=== PATIENT | male | born 1980 | race Native Hawaiian/Other Pacific Islander ===

== ENCOUNTER 2017-03-12 12:58 | Emergency (ER) | payer SELFPAY ==
--- NOTE | 2017-03-12 13:37 | ED PDOC ---
HPI: General Adult Time Seen by Provider: 03/12/17 13:28 Chief Complaint (Nursing): Dizziness/Lightheaded Chief Complaint (Provider): Heroin abuse History Per: Patient History/Exam Limitations: no limitations Onset/Duration Of Symptoms: Days (x1) Additional Complaint(s): Hilario Borjas is a 36 year old male, with no past medical history, who presents to the emergency department asking for substance abuse detox. He uses heroin daily. Patient reports he needs help quitting heroine. Last time he used was last night and is currently asymptomatic. He denies any dizziness, sweating , shaking, chest pain, dyspnea, weakness, headaches, nausea, vomit. Not suicidal or homicidal ideations. PMD: None provided. Past Medical History Reviewed: Historical Data, Nursing Documentation, Vital Signs Vital Signs: Last Vital Signs Temp 98 F 03/12/17 13:14 Pulse 105 H 03/12/17 13:14 Resp 16 03/12/17 13:14 BP 126/99 H 03/12/17 13:14 Pulse Ox 99 03/12/17 13:54 - Medical History PMH: No Chronic Diseases - Surgical History Surgical History: No Surg Hx - Family History Family History: States: Unknown Family Hx - Living Arrangements Living Arrangements: With Family - Social History Alcohol: None Drugs: Opiates - Allergies Allergies/Adverse Reactions: Allergies Allergy/AdvReac Type Severity Reaction Status Date / Time No Known Allergies Allergy Verified 03/12/17 13:17 Review of Systems ROS Statement: Except As Marked, All Systems Reviewed And Found Negative Constitutional: Negative for: Sweats Neurological: Negative for: Dizziness, Other (shaking) Psych: Negative for: Other (homicidal ideation) Physical Exam - Reviewed Nursing Documentation Reviewed: Yes Vital Signs Reviewed: Yes - Physical Exam Appears: Positive for: Well, Non-toxic, No Acute Distress Head Exam: Positive for: ATRAUMATIC, NORMAL INSPECTION, NORMOCEPHALIC Skin: Positive for: Normal Color, Warm, Dry Eye Exam: Positive for: EOMI, Normal appearance, PERRL ENT: Positive for: Normal ENT Inspection Neck: Positive for: Normal, Painless ROM Cardiovascular/Chest: Positive for: Regular Rate, Rhythm Respiratory: Positive for: Normal Breath Sounds. Negative for: Respiratory Distress Gastrointestinal/Abdominal: Positive for: Normal Exam, Bowel Sounds, Soft. Negative for: Tenderness Back: Positive for: Normal Inspection. Negative for: L CVA Tenderness, R CVA Tenderness Extremity: Positive for: Normal ROM. Negative for: Tenderness, Pedal Edema Neurologic/Psych: Positive for: Alert, automatic thread winder II-XII, Oriented. Negative for: Motor/Sensory Deficits, Aphasia, Facial Droop - ECG ECG: Positive for: Interpreted By Me, Viewed By Me ECG Rhythm: Positive for: Normal QRS, Normal ST Segment O2 Sat by Pulse Oximetry: 99 (RA) Pulse Ox Interpretation: Normal - Progress ED Course And Treament: 1418: Stable. AAOx3. Crisis to see pt. Wants help with heroin abuse. Has no symptoms otherwise. Denies any coccaine or drug abuse. 1442: Crisis saw pt. Does not meet criteria for admit. Fu outpt. Medical Decision Making Medical Decision Making: Initial Impression: Initial Plan: --EKG --Crisis Evaluation --Glucose, blood, POC --reevaluation Pending crisis evaluation Scribe Attestation: Documented by Homero Torres, acting as a scribe for Jb Acuna MD. Provider Scribe Attestation: All medical record entries made by the Scribe were at my direction and personally dictated by me. I have reviewed the chart and agree that the record accurately reflects my personal performance of the history, physical exam, medical decision making, and the department course for this patient. I have also personally directed, reviewed, and agree with the discharge instructions and disposition. Disposition - Clinical Impression Clinical Impression: Opiate abuse, continuous - Patient ED Disposition Is Patient to be Admitted: No Counseled Patient/Family Regarding: Diagnosis, Need For Followup - Disposition Referrals: [facility] [Outside] - 03/13/17 Disposition: Routine/Home Disposition Time: 14:43 Condition: STABLE Additional Instructions: Return if not better in 3 days. Instructions: Narcotic Abuse (ED) Forms: [employer] (Par[place]ayan)
[2017-03-12 15:05] VITALS: BP 126/78; PULSE 78; RESP 19; TEMP 97.6; O2SAT 98
--- NOTE | 2017-03-13 11:39 | CARD ---
APPROVED REPORT EKG Measurement Heart [id number] <Conclusion> Normal sinus rhythm Normal ECG
== END 2017-03-12 15:05 | disposition home or self-care (01) ==
LOC: H.ER 12:58
DX: F11.10 Opioid abuse, uncomplicated (principal)